=== PATIENT | male | born 1965 | race Caucasian/White ===

== ENCOUNTER → 2020-12-29 13:18 | Outpatient (BNVA) | payer MEDICARE, MEDICAID, SELFPAY | PROVIDERS: Visit Provider Psychiatry & Neurology Psychiatry | DX: F20.9 Schizophrenia, unspecified (principal); F33.2 Major depressive disorder, recurrent severe without psychotic features; F41.1 Generalized anxiety disorder | CPT/HCPCS: 99204 ==

== ENCOUNTER → 2021-01-26 10:48 | Outpatient (BNVA) | payer MEDICARE, MEDICAID, SELFPAY | PROVIDERS: Visit Provider Psychiatry & Neurology Psychiatry | DX: F41.1 Generalized anxiety disorder (principal); F33.2 Major depressive disorder, recurrent severe without psychotic features; F20.9 Schizophrenia, unspecified | CPT/HCPCS: 99214 ==

== ENCOUNTER → 2021-04-20 12:16 | Outpatient (BNVA) | payer MEDICARE, MEDICAID, SELFPAY | PROVIDERS: Visit Provider Psychiatry & Neurology Psychiatry | DX: F20.9 Schizophrenia, unspecified (principal); F33.2 Major depressive disorder, recurrent severe without psychotic features; F41.1 Generalized anxiety disorder | CPT/HCPCS: 80053; 80061; 83036; 84443; 85025; 99213 ==

== ENCOUNTER → 2021-08-21 15:19 | Outpatient (BNVA) | payer MEDICARE, MEDICAID, SELFPAY | PROVIDERS: Visit Provider Psychiatry & Neurology Psychiatry | DX: F41.1 Generalized anxiety disorder (principal); F33.2 Major depressive disorder, recurrent severe without psychotic features; F20.9 Schizophrenia, unspecified | CPT/HCPCS: 99214 ==

== ENCOUNTER 2023-08-25 05:12 | Inpatient (IN) | payer MEDICARE, MEDICAID, SELFPAY ==
[2023-08-25 05:13] VITALS: BP 130/93; PULSE 98; RESP 18; TEMP 36.6; O2SAT 97; BMI 34.4
[2023-08-25 05:47] LABS: Basophils % 0.3 %; Eosinophils % 0.1 %; Hematocrit 44.5 % (37-53); Lymphocytes # 1.5 10^3/uL (0.8-4.8); Lymphocytes % 13.7 %; Mean Corpuscular HGB Conc 33.9 g/dL (30-55); Mean Corpuscular Hemoglobin 31.9 pg (27-33); Mean Corpuscular Volume 94.1 fl (82-101); Mean Platelet Volume 9.6 fL (7.4-10.4); Monocytes # 0.7 10^3/uL (0.2-0.9); Monocytes % 6.2 %; Neutrophils % 79.5 %; Nucleated Red Blood Cells % 0 %; Platelet Count 410 10^3/cmm (157-399); Red Blood Count 4.73 10^6/uL (3.85-5.65); Red Cell Distribution Width 12.7 % (12.1-15.1); White Blood Count 11.05 10^3/uL (3.29-11.43)
--- NOTE | 2023-08-25 06:13 | W.ED.PSYCHS ---
HPI - Psych General: Chief Complaint: Psychiatric Symptoms Stated Complaint: SI Time Seen by Provider: 08/25/23 05:41 Source: patient Mode of arrival: EMS History of Present Illness: 57-year-old male presents to the emergency room with complaints of suicidal ideation via EMS. He has previously been seen by [facility] no previous admissions at our facility. He has previously been on several medications however states its been a couple of years since has been stable. Staff has not had his medications. He has a history of schizophrenia. Patient was previously seen by [facility] but has not been there in 2 years has been off of all of his medications during that time. He is contemplating harming himself either by hanging or carbon monoxide poisoning. MD complaint: suicidal ideation Onset (ago): unknown Relieving factors: none Exacerbating factors: none Associated psychiatric symptoms: depression, suicidal ideation and other (History schizophrenia) Associated symptoms: Reports depression and suicidal ideation If self harm: admits thoughts of self harm Review of Systems Const: Denies: fever(s) or chills Card: Denies: chest pain Resp: Denies: dyspnea GI: Denies: abdominal pain : Denies: dysuria, urinary frequency or urinary urgency Musc: Denies: neck pain or back pain Skin/Breast: Denies: rash Psych: Reports: depression and suicidal ideation [facility] ED PFSH: Medical History (Updated 08/25/23 @ 06:24 by Avni Reaves DO) Generalized anxiety disorder Major depressive disorder, recurrent severe without psychotic features Schizophrenia Social History Smoking and tobacco/nicotine status: former use of tobacco/nicotine Quit status (tobacco/nicotine): has quit using Year quit tobacco: 2005 Second hand smoke exposure: No Physical Exam Const: GENERAL APPEARANCE: cooperative and comfortable ORIENTATION/CONSCIOUSNESS: Yes awake, Yes oriented to person, Yes oriented to place and Yes oriented to time HENMT: COMMON NORMALS: normocephalic, atraumatic and hearing grossly normal bilaterally HEAD & SCALP: normocephalic and atraumatic Resp: COMMON NORMALS: normal respiratory effort, No retractions, No use of accessory muscles and clear to auscultation bilaterally AUSCULTATION: clear to auscultation bilaterally Cardio: COMMON NORMALS: regular rate, regular rhythm and No murmurs present (Cardio) RATE: regular rate RHYTHM: regular rhythm GI: COMMON NORMALS: Soft to palpation and No hepatosplenomegaly present AUSCULTATION: Yes normoactive bowel sounds PALPATION: Yes Soft to palpation, No Tenderness to palpation present (GI), No Guarding due to palpation present (GI) and Yes No hepatosplenomegaly present Extremity: COMMON NORMALS: normal to inspection, capillary refill normal, no clubbing, cyanosis or edema, no calf tenderness and no pedal edema Neuro: SENSORIUM/ORIENTATION: Yes oriented to person, Yes oriented to place and Yes oriented to time Skin: COMMON NORMALS: no rashes or lesions noted GENERAL SKIN EXAM: no rashes or lesions noted Course Vital Signs: Vital signs: Vital Signs Temperature 97.8 F 08/25/23 05:13 Pulse Rate 98 08/25/23 05:13 Respiratory Rate 17 08/25/23 06:53 Blood Pressure 130/93 08/25/23 05:13 Pulse Oximetry 97 08/25/23 05:13 Oxygen Delivery Me thod Room Air 08/25/23 05:13 MDM - Psych Medical Decision Making Discussed with Dr. Rosas will admit. Orders written. Differential Diagnosis Likely chronic schizophrenia, suicidal ideation and acute anxiety Medical Records I reviewed the patient's medical records. Lab Data I reviewed the patient's lab results. 08/25/23 05:31 08/25/23 05:31 Laboratory Results WBC 11.05 10^3/uL (3.29-11.43) 08/25/23 05:31 RBC 4.73 10^6/uL (3.85-5.65) 08/25/23 05:31 Hgb 15.10 g/dL (11.27-16.99) 08/25/23 05:31 Hct 44.5 % (37-53) 08/25/23 05:31 MCV 94.1 fl (82-101) 08/25/23 05:31 MCH 31.9 pg (27-33) 08/25/23 05:31 MCHC 33.9 g/dL (30-55) 08/25/23 05:31 RDW 12.7 % (12.1-15.1) 08/25/23 05:31 Plt Count 410 10^3/cmm (157-399) H 08/25/23 05:31 MPV 9.6 fL (7.4-10.4) 08/25/23 05:31 Neut % (Auto) 79.5 % 08/25/23 05:31 Lymph % (Auto) 13.7 % 08/25/23 05:31 Todd % (Auto) 6.2 % 08/25/23 05:31 Eos % (Auto) 0.1 % 08/25/23 05:31 Baso % (Auto) 0.3 % 08/25/23 05:31 Neut # (Auto) 8.80 10^3/uL (1.8-7.7) H 08/25/23 05:31 Lymph # (Auto) 1.5 10^3/uL (0.8-4.8) 08/25/23 05:31 Todd # (Auto) 0.7 10^3/uL (0.2-0.9) 08/25/23 05:31 Eos # (Auto) 0.0 10^3/uL (0.0-0.8) 08/25/23 05:31 Baso # (Auto) 0.0 10^3/uL (0.0-0.1) 08/25/23 05:31 Nucleated RBC % (auto) 0 % 08/25/23 05:31 Nucleated RBCs # 0.0 /100WBC 08/25/23 05:31 Sodium 138 mmol/L (136-145) 08/25/23 05:31 Potassium 3.9 mmol/L (3.5-5.1) 08/25/23 05:31 Chloride 99 mmol/L (98-107) 08/25/23 05:31 Carbon Dioxide 24 mmol/L (22-29) 08/25/23 05:31 Anion Gap 18.9 (5-19) 08/25/23 05:31 BUN 16 mg/dL (6-20) 08/25/23 05:31 Creatinine 1.0 mg/dL (0.7-1.2) 08/25/23 05:31 GFR Calculation 77.6 mL/min (90-130) L 08/25/23 05:31 Glucose 109 mg/dL (65-115) 08/25/23 05:31 Calculated Osmolality 288 mOsm/kg (285-295) 08/25/23 05:31 Calcium 9.6 mg/dL (8.5-10.5) 08/25/23 05:31 Total Bilirubin 0.6 mg/dL (0.15-1.2) 08/25/23 05:31 AST 17 U/L (0-40) 08/25/23 05:31 ALT 17 U/L (0-41) 08/25/23 05:31 Alkaline Phosphatase 69 U/L (40-130) 08/25/23 05:31 Total Protein 7.4 g/dL (6.6-8.7) 08/25/23 05:31 Albumin 4.8 g/dL (3.5-5.2) 08/25/23 05:31 Globulin 2.6 g/dL (1.3-4.6) 08/25/23 05:31 Salicylates < 0.3 mg/dL (3-10) L 08/25/23 05:31 Acetaminophen < 5.0 ug/mL (10-30) L 08/25/23 05:31 Ethyl Alcohol < 10 mg/dL (0-10) 08/25/23 05:31 No radiology studies performed this visit Discharge Plan Discharge Patient Disposition: Admitted As Inpatient Admit Provider: Urban Rosas Clinical Impression: Suicidal ideation, Depression, Schizophrenia Condition: Stable Coding Level of Care Code ED [employer] for Joao Doyle
[2023-08-25 06:17] LABS: Alanine Aminotransferase 17 U/L (0-41); Albumin Level 4.8 g/dL (3.5-5.2); Alkaline Phosphatase 69 U/L (40-130); Anion Gap 18.9 (5-19); Aspartate Amino Transferase 17 U/L (0-40); Blood Urea Nitrogen 16 mg/dL (6-20); Calcium 9.6 mg/dL (8.5-10.5); Carbon Dioxide 24 mmol/L (22-29); Chloride 99 mmol/L (98-107); Globulin 2.6 g/dL (1.3-4.6); Glomerular Filtration Rate 77.6 mL/min (90-130); Glucose 109 mg/dL (65-115); Osmolality Calculated 288 mOsm/kg (285-295); Potassium 3.9 mmol/L (3.5-5.1); Sodium 138 mmol/L (136-145); Total Bilirubin 0.6 mg/dL (0.15-1.2); Total Protein 7.4 g/dL (6.6-8.7)
[2023-08-25 06:20] LABS: Acetaminophen < 5.0 ug/mL (10-30); Alcohol Level < 10 mg/dL (0-10); Salicylate < 0.3 mg/dL (3-10)
[2023-08-25 06:40] VITALS: RESP 17
[2023-08-25 06:53] VITALS: RESP 17
[2023-08-25 07:30] VITALS: BP 134/91; PULSE 82; RESP 18; TEMP 36.9; O2SAT 97
[2023-08-25] MEDS: flu vacc pf 2023-24 (6 mos+) 60 MCG IM (09:26)
[2023-08-25 13:35] VITALS: BP 129/75; PULSE 92; RESP 18; TEMP 36.4; O2SAT 98
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
[2023-08-25 20:10] VITALS: BP 105/76; PULSE 71; RESP 16; TEMP 36.6; O2SAT 96
[2023-08-25 21:49] LABS: Amphetamines Screen Urine Negative (Negative); Barbiturates Screen Urine Negative (Negative); Benzodiazepines Screen Urine Negative (Negative); Cocaine Screen Urine Negative (Negative); Opiate Screen Urine Negative (Negative); PCP Screen Urine Negative (Negative); THC Screen Urine Positive (Negative)
[2023-08-25 21:50] LABS: Add Urine Microscopic? YES; Amorphous Sediment Urine 1+ /hpf; Bilirubin Urine 1+ (Negative); Blood Urine Neg (Negative); Glucose Urine UA Norm (Normal); Ketones Urine 1+ (Negative); Leukocyte Esterase Urine Negative (Negative); Mucus Urine 2+ /hpf; Nitrate Urine Negative (Negative); Protein Urine Trace (Negative); RBC Urine RARE /hpf (0-2); Urine Appearance Clear (CLEAR); Urine Color Yellow (Yellow); Urobilinogen Urine 8 mg/dL (Negative); WBC Urine RARE /hpf (0-5); pH Urine 5 (5-7)
[2023-08-25 21:51] LABS: Add Urine Culture? No
[2023-08-26 06:00] VITALS: RESP 16
[2023-08-26 14:00] VITALS: BP 116/77; PULSE 72; RESP 16; TEMP 36.9; O2SAT 97
[2023-08-26] MEDS: lurasidone 80 mg Tablet 40 MG PO (16:59)
[2023-08-26] MEDS: nicotine 2 mg Gum BUCCAL (16:59)
--- NOTE | 2023-08-26 18:30 | P.NPUPN_ITS ---
Subjective NPU Subjective: Patient is a 57-year-old male with history of schizophrenia and suicidal ideation. He continued to report depressed mood and reported having suicidal thoughts. He continued to report that he believes that the forces including law enforcement were somehow monitoring and somehow testicles bugging his testicles. Patient reports being frustrated at being placed under their intense monitoring. Patient was unable to describe why or for what reason he was the focus of their intense scrutiny. he had reported some difficulties with sleep. The patient was able to attend groups but reported feeling tired. Mental Status Exam MSE Comments: patient is a casually dressed cooperative male who appeared his stated age. He was slightly overweight. He was alert and oriented to person place time and situation. His speech was normal in regards to rate rhythm and prosody.His gait appeared adequate. His hygiene was poor. There was no evidence of any abnormal involuntary motor movements tics or tremors appreciated. His mood was described as down. His affect appeared blunted. His thought process was linear logical and goal-directed. His thought content showed evidence of active paranoia with bizarre delusions appreciated. He did not appear to be responding internal stimuli. He had endorsed suicidal ideation without any current plan. He denied any homicidal ideation. His insight appeared impaired. His judgment was poor. His impulse control appeared limited. Vitals/I&O/Wt Last Vital Signs Temp 98.4 F 08/26/23 14:00 Pulse 72 08/26/23 14:00 Resp 16 08/26/23 14:00 BP 116/77 08/26/23 14:00 Pulse Ox 97 08/26/23 14:00 O2 Del Method Room Air 08/26/23 14:00 Weight last 48 hrs Weight 108.862 kg Data NPU 08/25/23 05:31 08/25/23 05:31 A&P Assessment and plan (1) Schizophrenia: (2) Suicidal ideation: (3) Generalized anxiety disorder: Plan Patient is a 57-year-old male with schizophrenia admitted with active paranoia in the context of noncompliance with his psychiatric medications for over 2 years. The patient was agreeable to a trial of a medication to target psychosis. 1. ?Encourage individual, group and milieu therapy. 2. Recommend sober living treatment at the highest level of care to which the patient is willing to commit. 3. Continue q-15 minute checks for safety 4. Will start Latuda 40mg at 7Pm with food today. Risks and benefits discussed with patient. Involuntary Hold Information 96 Hour Hold: 96 Hour Involuntary Admission: No Attestations NPU Medical Necessity Statement*: Inpatient hospitalization is medically necessary and deemed to be the clinically appropriate intervention at this time.? Medications will be initiated and adjusted as clinically indicated.? The patient?s likely length of stay is 5-7 days.? Coding Level of Care Code Acute Code for [facility] Fwd Diagnoses Schizophrenia F20.9 Suicidal ideation R45.851 Generalized anxiety disorder F41.1
[2023-08-26 20:09] VITALS: BP 153/75; PULSE 85; RESP 18; O2SAT 96
[2023-08-26] MEDS: trazodone 50 mg Tablet PO (22:59)
[2023-08-27 06:00] VITALS: BP 132/90; PULSE 100; RESP 18; TEMP 36.8; O2SAT 93
[2023-08-27] MEDS: hyDROXYzine 25 mg Capsule 50 MG PO (08:19)
[2023-08-27 14:00] VITALS: BP 113/74; PULSE 74; RESP 16; TEMP 36.8; O2SAT 96
--- NOTE | 2023-08-27 16:33 | P.NPUPN_ITS ---
Subjective NPU Subjective: Patient is a 57-year-old male with history of schizophrenia and suicidal ideation. Patient had endorsed that he had felt like he may try to kill himself if he were to leave. He had continue to report feeling targeted here in the hospital by the [place] police and the legal system. He had reported that he had felt that his body was being bugged and stated that he needed to leave the state as soon as possible. He had reported that he had been controlled for years. Mental Status Exam MSE Comments: patient is a casually dressed cooperative male who appeared his stated age. He was slightly overweight. He was alert and oriented to person place time and situation. His speech was normal in regards to rate rhythm and prosody.His gait appeared adequate. His hygiene was poor. There was no evidence of any abnormal involuntary motor movements tics or tremors appreciated. His mood was described as down. His affect appeared blunted. His thought process was linear logical and goal-directed. His thought content showed evidence of active paranoia with bizarre delusions of control. He did not appear to be responding internal stimuli. He had endorsed suicidal ideation without any current plan. He denied any homicidal ideation. His insight appeared impaired. His judgment was poor. His impulse control appeared limited. Vitals/I&O/Wt Last Vital Signs Temp 98.3 F 08/27/23 14:00 Pulse 74 08/27/23 14:00 Resp 16 08/27/23 14:00 BP 113/74 08/27/23 14:00 Pulse Ox 96 08/27/23 14:00 O2 Del Method Room Air 08/27/23 14:00 Data NPU 08/25/23 05:31 08/25/23 05:31 A&P Assessment and plan (1) Schizophrenia: (2) Suicidal ideation: (3) Generalized anxiety disorder: Plan Patient is a 57-year-old male with schizophrenia admitted with active paranoia in the context of noncompliance with his psychiatric medications for over 2 years. The patient was agreeable to a trial of a medication to target psychosis. 1. ?Encourage individual, group and milieu therapy. 2. Recommend sober living treatment at the highest level of care to which the patient is willing to commit. 3. Continue q-15 minute checks for safety 4. Increase Latuda 60mg at 7Pm with food. Risks and benefits discussed with patient. Involuntary Hold Information 96 Hour Hold: 96 Hour Involuntary Admission: No Attestations NPU Medical Necessity Statement*: Inpatient hospitalization is medically necessary and deemed to be the clinically appropriate intervention at this time.? Medications will be initiated and adju sted as clinically indicated.? The patient?s likely length of stay is 5-7 days.? Coding Level of Care Code Acute Code for [facility] Fwd Diagnoses Schizophrenia F20.9 Suicidal ideation R45.851 Generalized anxiety disorder F41.1
[2023-08-27] MEDS: lurasidone 20 mg Tablet 60 MG PO (17:07)
[2023-08-27 20:42] VITALS: BP 111/72; PULSE 66; RESP 16; TEMP 37; O2SAT 98
[2023-08-28 06:00] VITALS: BP 136/85; PULSE 82; RESP 17; O2SAT 97
[2023-08-28] MEDS: hyDROXYzine 25 mg Capsule 50 MG PO (11:09)
[2023-08-28 14:00] VITALS: BP 130/93; PULSE 74; RESP 16; TEMP 36.6; O2SAT 98
[2023-08-28] MEDS: lurasidone 20 mg Tablet 60 MG PO (16:33)
[2023-08-28] MEDS: CLONazepam 1 mg Tablet PO (16:33)
--- NOTE | 2023-08-28 17:19 | W.PM.NPUPNS ---
Subjective NPU Subjective: Patient is a 57-year-old male with history of schizophrenia and suicidal ideation. The patient had still reported having thoughts of wanting to . He had stated that he had felt extremely uncomfortable stating that he could not handle the pain that he was feeling in his scrotum as he attributed his pain to a device that the police were placing on his testicles. He continued to isolate himself on the milieu. He continued to make bold and bizarre statements regarding the police having excessively targeted the patient for no clear reason. Mental Status Exam MSE Comments: The patient is a casually dressed cooperative male who appeared his stated age. He was slightly overweight. He was alert and oriented to person place time and situation. His speech was normal in regards to rate rhythm and prosody. His gait appeared adequate. His hygiene was poor. There was no evidence of any abnormal involuntary motor movements tics or tremors appreciated. His mood was described as terrible. His affect appeared blunted. His thought process was focused on somatic complaints including testicular pain. His thought content showed evidence of active paranoia with bizarre delusions of control. He did not appear to be responding internal stimuli. He had endorsed suicidal ideation without any current plan. He denied any homicidal ideation. His insight appeared impaired. His judgment was poor. His impulse control appeared limited. Vitals/I&O/Wt Last Vital Signs Temp 98 F 08/28/23 14:00 Pulse 74 08/28/23 14:00 Resp 16 08/28/23 14:00 BP 130/93 08/28/23 14:00 Pulse Ox 98 08/28/23 14:00 O2 Del Method Room Air 08/28/23 14:00 Data NPU 08/25/23 05:31 08/25/23 05:31 A&P Assessment and plan (1) Schizophrenia: (2) Suicidal ideation: (3) Generalized anxiety disorder: Plan Patient is a 57-year-old male with schizophrenia admitted with active paranoia in the context of noncompliance with his psychiatric medications for over 2 years. The patient was agreeable to a trial of a medication to target psychosis. 1. ?Encourage individual, group and milieu therapy. 2. Recommend sober living treatment at the highest level of care to which the patient is willing to commit. 3. Continue q-15 minute checks for safety 4. Continue Latuda 60mg at 7Pm with food. Risks and benefits discussed with patient. 5. Check CBC with Diff, Involuntary Hold Information 96 Hour Hold: 96 Hour Involuntary Admission: No Attestations NPU Medical Necessity Statement*: Inpatient hospitalization is medically necessary and deemed to be the clinically appropriate intervention at this time.? Medications will be initiated and adjusted as clinically indicated.? The patient?s likely length of stay is 5-7 days.? Coding Level of Care Code Acute Code for [facility] Fwd Diagnoses Schizophrenia F20.9 Suicidal ideation R45.851 Generalized anxiety disorder F41.1
[2023-08-28 18:59] LABS: Hematocrit 42.2 % (37-53); Mean Corpuscular HGB Conc 33.4 g/dL (30-55); Mean Corpuscular Hemoglobin 31.8 pg (27-33); Mean Corpuscular Volume 95.3 fl (82-101); Mean Platelet Volume 10.1 fL (7.4-10.4); Platelet Count 365 10^3/cmm (157-399); Red Blood Count 4.43 10^6/uL (3.85-5.65); Red Cell Distribution Width 12.9 % (12.1-15.1); White Blood Count 8.83 10^3/uL (3.29-11.43)
[2023-08-28 19:19] LABS: Absolute Eosinophils 0.3 10^3/cmm (0.0-0.7); Absolute Neutrophil 5.8 10^3/cmm (1.4-6.5); Absolute Segmented Neutrophil 5.8 10/cmm (1.6-7.1); Eosinophils 3 %; Lymphocytes 23 %; Lymphocytes Absolute 2.3 10^3/cmm (1.2-3.4); Monocytes Absolute 0.4 10^3/cmm (0.1-0.6); Platelet Estimate Normal (Normal); Segmented Neutrophils 66 %; Total Cells Counted 100 (0-100)
[2023-08-28 20:34] VITALS: BP 134/89; PULSE 76; RESP 16; TEMP 36.3; O2SAT 96
[2023-08-29] MEDS: hyDROXYzine 25 mg Capsule 50 MG PO ×3 (05:13→17:08)
[2023-08-29 06:00] VITALS: BP 133/85; PULSE 77; RESP 17; TEMP 36.5; O2SAT 96
--- NOTE | 2023-08-29 13:12 | P.NPUPN_ITS ---
Subjective NPU Subjective: Patient is a 57-year-old male with history of schizophrenia and suicidal ideation. Patient continued to endorse suicidal thoughts if he were to go home. He had reported concern that the police were trying to harm him at his home and stated that he wished to consider an alternative living option including moving from the state. Patient had reported some relief in anxiety and reported that he was not having as much testicular pain today. Patient continued to endorse that his private parts were being assaulted by a drone that had the ability to gain control and cause pain to his testicles. Mental Status Exam MSE Comments: The patient is a casually dressed cooperative male who appeared his stated age. He was slightly overweight. He was alert and oriented to person place time and situation. His speech was normal in regards to rate rhythm and prosody. His gait appeared adequate. His hygiene was improving. There was no evidence of any abnormal involuntary motor movements tics or tremors appreciated. His mood was described as better. His affect remained blunted. His thought process was focused on somatic complaints including testicular pain. His thought content showed evidence of active paranoia with bizarre delusions of control. He did not appear to be responding internal stimuli. He had endorsed suicidal ideation without any current plan. He denied any homicidal ideation. His insight appeared impaired. His judgment was poor. His impulse control appeared limited. Vitals/I&O/Wt Last Vital Signs Temp 97.7 F 08/29/23 06:00 Pulse 77 08/29/23 06:00 Resp 17 08/29/23 06:00 BP 133/85 08/29/23 06:00 Pulse Ox 96 08/29/23 06:00 O2 Del Method Room Air 08/29/23 06:00 Data NPU 08/28/23 18:15 08/25/23 05:31 A&P Assessment and plan (1) Schizophrenia: (2) Suicidal ideation: (3) Generalized anxiety disorder: Plan Patient is a 57-year-old male with schizophrenia admitted with active paranoia in the context of noncompliance with his psychiatric medications for over 2 years. The patient was agreeable to a trial of a medication to target psychosis. 1. ?Encourage individual, group and milieu therapy. 2. Recommend sober living treatment at the highest level of care to which the patient is willing to commit. 3. Continue q-15 minute checks for safety 4. Continue Latuda 60mg at 7Pm with food. Risks and benefits discussed with patient. 5. Check CBC with Diff, FSG, fasting lipid profile, LFT ordered. Involuntary Hold Information 96 Hour Hold: 96 Hour Involuntary Admission: No Attestations NPU Medical Necessity Statement*: Inpatient hospitalization is medically necessary and deemed to be the clinically appropriate intervention at this time.? Medications will be initiated and adjusted as clinically indicated.? The patient?s likely length of stay is 5-7 d ays.? Coding Level of Care Code Acute Code for Chg Fwd Diagnoses Schizophrenia F20.9 Suicidal ideation R45.851 Generalized anxiety disorder F41.1
[2023-08-29 14:00] VITALS: BP 121/83; PULSE 87; RESP 15; TEMP 36.8; O2SAT 96
[2023-08-29] MEDS: lurasidone 20 mg Tablet 60 MG PO (17:09)
[2023-08-29 20:28] VITALS: RESP 16
[2023-08-30 06:00] VITALS: BP 121/82; PULSE 84; RESP 18; TEMP 36.7; O2SAT 99
[2023-08-30] MEDS: hyDROXYzine 25 mg Capsule 50 MG PO ×3 (06:42→19:31)
--- NOTE | 2023-08-30 12:57 | PC.NURSE ---
administered 50mg Vistaril to patient for moderate anxiety. patient in dayroom watching tv
[2023-08-30 14:00] VITALS: BP 135/87; PULSE 95; RESP 15; TEMP 36.6; O2SAT 94
--- NOTE | 2023-08-30 16:37 | W.PM.NPUPNS ---
Subjective NPU Subjective: Patient is a 57-year-old male with history of schizophrenia and suicidal ideation. Patient had less somatic complaints. He had continued to report suspicions of the police and government officials somehow causing him pain. He had reported that if he were to return to his current living facility that he would likely need to flee as he stated that he had been tired of fighting the law forces in their influence on his body through some biological drones. He had been somewhat isolative on the milieu. He reported no side effects from his medication other than feeling that it made him sleepy shortly after taking it. He had requested that he take the medicine a bit later at night. Mental Status Exam MSE Comments: The patient is a casually dressed cooperative overweight male who appeared his stated age. He was alert and oriented to person, place, time, and situation. His speech was normal in volume, prosody with brief periods of increased latency. His gait appeared adequate. His hygiene was improving. There was no evidence of any abnormal involuntary motor movements tics or tremors appreciated. His mood was described as better. His affect remained blunted. His thought process was less focused on testicular pain. His thought content continued to show active bizarre delusions. He did not appear to be responding internal stimuli. He had endorsed fleeting continguent suicidal thoughts. He denied any homicidal ideation. His insight appeared impaired. His judgment was poor. His impulse control appeared limited. Vitals/I&O/Wt Last Vital Signs Temp 97.9 F 08/30/23 14:00 Pulse 95 08/30/23 14:00 Resp 15 08/30/23 14:00 BP 135/87 08/30/23 14:00 Pulse Ox 94 08/30/23 14:00 O2 Del Method Room Air 08/29/23 14:00 Data NPU 08/28/23 18:15 08/25/23 05:31 A&P Assessment and plan (1) Schizophrenia: (2) Suicidal ideation: (3) Generalized anxiety disorder: Plan Patient is a 57-year-old male with schizophrenia admitted with active paranoia in the context of noncompliance with his psychiatric medications for over 2 years. The patient was agreeable to a trial of a medication to target psychosis. 1. ?Encourage individual, group and milieu therapy. 2. Recommend sober living treatment at the highest level of care to which the patient is willing to commit. 3. Continue q-15 minute checks for safet. Continue Latuda 60mg at 7Pm with food. Risks and benefits discussed with patient. 5. Check CBC with Diff, FSG, fasting lipid profile, LFT ordered. Involuntary Hold Information 96 Hour Hold: 96 Hour Involuntary Admission: No Attestations NPU Medical Necessity Statement*: Inpatient hospitalization is medically necessary and deemed to be the clinically appropriate intervention at this time.? Medications will be initiated and adjusted as clinically indicated.? The patient?s likely length of stay is 5-7 days.? Coding Level of Care Code Acute Code for Chg Fwd Diagnoses Schizophrenia F20.9 Suicidal ideation R45.851 Generalized anxiety disorder F41.1
[2023-08-30] MEDS: lurasidone 20 mg Tablet 60 MG PO (19:31)
[2023-08-30 20:02] VITALS: BP 122/81; PULSE 88; RESP 18; TEMP 36.4; O2SAT 97
[2023-08-30] MEDS: trazodone 50 mg Tablet PO (20:12)
[2023-08-31 06:00] VITALS: BP 130/73; PULSE 90; RESP 16; O2SAT 94
[2023-08-31] MEDS: hyDROXYzine 25 mg Capsule 50 MG PO ×2 (08:52→16:18)
--- NOTE | 2023-08-31 12:29 | W.PM.NPUPNS ---
Subjective NPU Subjective: Patient is a 57-year-old male with history of schizophrenia and suicidal ideation. The patient reported that he continued to feel unsafe and stated that he was uncertain about his future. He stated that he felt that his better managed but stated that he continued to be worried about the police using drones to cause damage to my body. Patient had been isolative on the milieu. He reported no side effects from his medication. Mental Status Exam MSE Comments: The patient is a casually dressed cooperative overweight male who appeared his stated age. He was alert and oriented to person, place, time, and situation. His speech was normal in volume, prosody with less frequent periods of latency. His gait appeared adequate. His hygiene was improving. There was no evidence of any abnormal involuntary motor movements tics or tremors appreciated. His mood was described as okay. His affect remained blunted. His thought process was linear and less somatic in nature. His thought content continued to show continued presence of somatic delusions and ideas of reference. He did not appear to be responding internal stimuli. He had endorsed fleeting continguent suicidal thoughts. He denied any homicidal ideation. His insight appeared impaired. His judgment was poor. His impulse control appeared limited. Vitals/I&O/Wt Last Vital Signs Temp 97.6 F 08/30/23 20:02 Pulse 90 08/31/23 06:00 Resp 16 08/31/23 06:00 BP 130/73 08/31/23 06:00 Pulse Ox 94 08/31/23 06:00 O2 Del Method Room Air 08/31/23 06:00 Data NPU 08/28/23 18:15 08/25/23 05:31 A&P Assessment and plan (1) Schizophrenia: (2) Suicidal ideation: (3) Generalized anxiety disorder: Plan Patient is a 57-year-old male with schizophrenia admitted with active paranoia in the context of noncompliance with his psychiatric medications for over 2 years. The patient was agreeable to a trial of a medication to target psychosis. 1. ?Encourage individual, group and milieu therapy. 2. Recommend sober living treatment at the highest level of care to which the patient is willing to commit. 3. Continue q-15 minute checks for safety. Continue Latuda 60mg at 7Pm with food. Risks and benefits discussed with patient. Patient appears better. Involuntary Hold Information 96 Hour Hold: 96 Hour Involuntary Admission: No Attestations NPU Medical Necessity Statement*: Inpatient hospitalization is medically necessary and deemed to be the clinically appropriate intervention at this time.? Medications will be initiated and adjusted as clinically indicated.? The patient?s likely length of stay is 5-7 days.? Coding Level of Care Code Acute Code for Chg Fwd Diagnoses Schizophrenia F20.9 Suicidal ideation R45.851 Generalized anxiety disorder F41.1
[2023-08-31 14:00] VITALS: BP 110/71; PULSE 86; RESP 16; TEMP 36.6; O2SAT 97
[2023-08-31] MEDS: lurasidone 20 mg Tablet 60 MG PO (18:49)
[2023-08-31 22:00] VITALS: BP 103/70; PULSE 89; RESP 18; TEMP 36.3; O2SAT 96
[2023-09-01] MEDS: hyDROXYzine 25 mg Capsule 50 MG PO ×2 (05:44→20:30)
[2023-09-01 06:00] VITALS: BP 115/73; PULSE 71; RESP 18; TEMP 36.4; O2SAT 96
[2023-09-01 14:00] VITALS: BP 118/78; PULSE 69; RESP 15; TEMP 36.7; O2SAT 98
[2023-09-01] MEDS: lurasidone 20 mg Tablet 60 MG PO (18:26)
--- NOTE | 2023-09-01 18:44 | P.NPUPN_ITS ---
Subjective NPU Subjective: Patient is a 57-year-old male with history of schizophrenia and suicidal ideation. Patient reported that he had nothing to say to me today. He had stated that he continued to be excessively worried about the police and reported that he would like to have time to rest at this time. He had continued to appear preoccupied by his thoughts. He had made less somatic complaints to staff. Nevertheless, the patient had spent much of the day isolating himself in his room. Mental Status Exam MSE Comments: The patient is a casually dressed cooperative overweight male who appeared his stated age. He was alert and oriented to person, place, time, and situation. His speech was normal in volume with decreased productivity noted today. His gait appeared adequate. His hygiene was improving. There was no evidence of any abnormal involuntary motor movements tics or tremors appreciated. His mood was described as okay. His affect remained blunted. His thought process was linear and less somatic in nature. His thought content continued to show continued presence of somatic delusions and ideas of reference. He appeared more paranoid today. He did not appear to be responding internal stimuli. He had endorsed fleeting continguent suicidal thoughts. He denied any homicidal ideation. His insight appeared impaired. His judgment was poor. His impulse control appeared limited. Vitals/I&O/Wt Last Vital Signs Temp 98.1 F 09/01/23 14:00 Pulse 69 09/01/23 14:00 Resp 15 09/01/23 14:00 BP 118/78 09/01/23 14:00 Pulse Ox 98 09/01/23 14:00 O2 Del Method Room Air 09/01/23 06:00 Weight last 48 hrs Weight 113.852 kg Data NPU 08/28/23 18:15 08/25/23 05:31 A&P Assessment and plan (1) Schizophrenia: (2) Suicidal ideation: (3) Generalized anxiety disorder: Plan Patient is a 57-year-old male with schizophrenia admitted with active paranoia in the context of noncompliance with his psychiatric medications for over 2 y ears. The patient was agreeable to a trial of a medication to target psychosis. 1. ?Encourage individual, group and milieu therapy. 2. Recommend sober living treatment at the highest level of care to which the patient is willing to commit. 3. Continue q-15 minute checks for safety. Continue Latuda 60mg at 7Pm with food. Risks and benefits discussed with patient. Involuntary Hold Information 96 Hour Hold: 96 Hour Involuntary Admission: No Attestations NPU Medical Necessity Statement*: Inpatient hospitalization is medically necessary and deemed to be the clinically appropriate intervention at this time.? Medications will be initiated and adjusted as clinically indicated.? The patient?s likely length of stay is 5-7 days.? Coding Level of Care Code Acute Code for Chg Fwd Diagnoses Schizophrenia F20.9 Suicidal ideation R45.851 Generalized anxiety disorder F41.1
--- NOTE | 2023-09-01 20:06 | PC.NURSE ---
Asked pt to obtain vital signs. Pt verbally stated that pt didn't want them taken.
[2023-09-01] MEDS: trazodone 50 mg Tablet PO (20:35)
[2023-09-01 22:00] VITALS: BP 125/59; PULSE 74; RESP 18; O2SAT 98
[2023-09-02] MEDS: hyDROXYzine 25 mg Capsule 50 MG PO ×3 (04:04→18:48)
--- NOTE | 2023-09-02 15:05 | P.NPUPN_ITS ---
Subjective NPU Subjective: Patient is a 57-year-old male with history of schizophrenia and suicidal ideation. Patient had continue to endorse depressed mood. He had continued to report having thoughts of suicide. He had continued to complain of somatic complaints and stated that the Latuda was helping a little bit . He had required significant prompting for completion of activities of daily living. He reported sleep continuity disruption. Patient reported some feelings of hopelessness. He reported that he needed to get out of his current living situation as the police were still out to get me . Mental Status Exam MSE Comments: The patient is a casually dressed cooperative overweight male who appeared his stated age. He was alert and oriented to person, place, time, and situation. His speech was normal in volume with decreased productivity noted today. His gait appeared adequate. His hygiene was poor today. There was no evidence of any abnormal involuntary motor movements tics or tremors appreciated. His mood was described as not good. His affect remained blunted. His thought process was linear but superficial today. His thought content continued to show continued presence of somatic delusions and ideas of reference. THere was continued evidence of paranoia. He did not appear to be responding internal stimuli. He had endorsed suicidal thoughts today. He denied any homicidal ideation. His insight appeared impaired. His judgment was poor. His impulse control appeared limited. Vitals/I&O/Wt Last Vital Signs Temp 98.1 F 09/01/23 14:00 Pulse 74 09/01/23 22:00 Resp 18 09/01/23 22:00 BP 125/59 09/01/23 22:00 Pulse Ox 98 09/01/23 22:00 O2 Del Method Room Air 09/01/23 06:00 Weight last 48 hrs Weight 113.852 kg Data NPU 08/28/23 18:15 08/25/23 05:31 A&P Assessment and plan (1) Schizophrenia: (2) Suicidal ideation: (3) Generalized anxiety disorder: Plan Patient is a 57-year-old male with schizophrenia admitted with active paranoia in the context of noncompliance with his psychiatric medications for over 2 years. The patient was agreeable to a trial of a medication to target psychosis. 1. ?Encourage individual, group and milieu therapy. 2. Recommend sober living treatment at the highest level of care to which the patient is willing to commit. 3. Continue q-15 minute checks for safety. Continue Latuda 60mg at 7Pm with food. Risks and benefits discussed with patient. Consider SSRI or wellbutrin for depression. Involuntary Hold Information 96 Hour Hold: 96 Hour Involuntary Admission: No Attestations NPU Medical Necessity Statement*: Inpatient hospitalization is medically necessary and deemed to be the clinically appropriate intervention at this time.? Medications will be initiated and adjusted as clinically indicated.? The patient?s likely length of stay is 5-7 days.? Coding Level of Care Code Acute Code for [facility] Fwd Diagnoses Schizophrenia F20.9 Suicidal ideation R45.851 Generalized anxiety disorder F41.1
--- NOTE | 2023-09-02 17:32 | PC.NURSE ---
pt up at nurses station wanting to know when he will be able to go home, states he is really homesick and thinks he will fill better if he is at home. pt also states he will talk with Doctor about starting on a antidepressant and talk with him about going home tomorrow. pt states ok to stay tonight.
[2023-09-02] MEDS: magnesium hydroxide 30 mL UDC PO (18:48)
[2023-09-02] MEDS: trazodone 50 mg Tablet PO (20:33)
[2023-09-02] MEDS: lurasidone 20 mg Tablet 60 MG PO (20:33)
[2023-09-02 20:34] VITALS: BP 116/88; PULSE 93; RESP 18; TEMP 36.8; O2SAT 94
[2023-09-03] MEDS: hyDROXYzine 25 mg Capsule 50 MG PO ×3 (03:24→20:07)
[2023-09-03] MEDS: ibuprofen 600 mg Tablet PO ×2 (10:00→18:38)
--- NOTE | 2023-09-03 10:54 | PC.NURSE ---
PRN VISTARIL 50 MG GIVEN PO PER PT C/O STATED ANXIETY
[2023-09-03] MEDS: acetaminophen 325 mg Tablet 650 MG PO ×3 (11:21→23:05)
[2023-09-03 14:00] VITALS: BP 110/67; PULSE 76; RESP 16; TEMP 36.6; O2SAT 97
[2023-09-03] MEDS: nicotine 2 mg Gum BUCCAL (16:43)
[2023-09-03] MEDS: lurasidone 20 mg Tablet 60 MG PO (18:27)
--- NOTE | 2023-09-03 19:50 | P.NPUPN_ITS ---
Subjective NPU 2 Subjective: Patient is a 57-year-old male with history of schizophrenia and suicidal ideation. He had complained of bizarre testicular pain and was evaluated by a male nurse yesterday and found to have no signs of any testicular issues. He continued to report that he was in substantial pain and continued to report his anxiety regarding the police somehow probing into his testicles using some special electronic device remained prominent in regards to his belief system. He was compliant with his Latuda. He continued to report that he had wanted to kill himself by leaving here as soon as possible but stated that now he wanted to be more truthful Mental Status Exam 2 MSE Comments: The patient is a casually dressed cooperative overweight male who appeared his stated age. He was alert and oriented to person, place, time, and situation. His speech was normal in volume and rate today. His gait appeared adequate. His hygiene was improved today. There was no evidence of any abnormal involuntary motor movements tics or tremors appreciated. His mood was described as anxious. His affect remained blunted. His thought process was linear but superficial today. His thought content continued to show continued presence of somatic delusions and ideas of reference. There was continued evidence of paranoia. He did not appear to be responding internal stimuli. He had endorsed suicidal thoughts today. He denied any homicidal ideation. His insight appeared impaired. His judgment was poor. His impulse control appeared limited. Vitals/I&O/Wt Last Vital Signs Temp 97.8 F 09/03/23 14:00 Pulse 76 09/03/23 14:00 Resp 16 09/03/23 14:00 BP 110/67 09/03/23 14:00 Pulse Ox 97 09/03/23 14:00 O2 Del Method Room Air 09/03/23 14:00 Data NPU 08/28/23 18:15 08/25/23 05:31 A&P Assessment and plan (1) Schizophrenia: (2) Suicidal ideation: (3) Generalized anxiety disorder: Plan Patient is a 57-year-old male with schizophrenia admitted with active paranoia in the context of noncompliance with his psychiatric medications for over 2 years. The patient was agreeable to a trial of a medication to target psychosis. 1. ?Encourage individual, group and milieu therapy. 2. Recommend sober living treatment at the highest level of care to which the patient is willing to commit. 3. Continue q-15 minute checks for safety. Continue Latuda 60mg at 7Pm with food. Risks and benefits discussed with patient. Added klonopin .5mg at night to target anxiety. Involuntary Hold Information 2 96 Hour Hold: 96 Hour Involuntary Admission: No Attestations NPU 2 Medical Necessity Statement*: Inpatient hospitalization is medically necessary and deemed to be the clinically appropriate intervention at this time.? Medications will be initiated and adjusted as clinically indicated.? The patient?s likely length of stay is 5-7 days.? Coding Level of Care Code Acute Code for Chg Fwd Diagnoses Schizophrenia F20.9 Suicidal ideation R45.851 Generalized anxiety disorder F41.1
[2023-09-03] MEDS: CLONazepam 0.5 mg Tablet PO (20:07)
[2023-09-03] MEDS: trazodone 50 mg Tablet PO (20:07)
[2023-09-03 20:30] VITALS: BP 128/80; PULSE 82; RESP 18; O2SAT 97
[2023-09-04 06:00] VITALS: RESP 18
[2023-09-04] MEDS: ibuprofen 600 mg Tablet PO ×3 (07:37→20:25)
--- NOTE | 2023-09-04 07:38 | PC.NURSE ---
Administered 600mg motrin po for pain 10/10 in the abdomen.
[2023-09-04] MEDS: hyDROXYzine 25 mg Capsule 50 MG PO ×2 (08:55→15:14)
[2023-09-04] MEDS: acetaminophen 325 mg Tablet 650 MG PO ×2 (11:36→16:11)
[2023-09-04 14:00] VITALS: BP 103/65; PULSE 68; RESP 16; TEMP 36.4; O2SAT 92
--- NOTE | 2023-09-04 15:14 | PC.NURSE ---
PRN VISTARIL 50 MG GIVEN PO PER PT C/O STATED ANXIETY. WILL CONT TO MONITOR
--- NOTE | 2023-09-04 15:48 | W.PM.NPUPNS ---
Subjective NPU Subjective: Patient is a 57-year-old male with history of schizophrenia and suicidal ideation. Patient continued to report odd complaints stating that he continued to feel as if the police had somehow implanted a probe that was causing him his current problems with abdominal pain as he stated that the pain had recently moved up from his testicles into his abdominal wall. He had reported extreme anxiety and stated numerous times that he needed help with his pain. There continue to appear to be no clear evidence of any abdominal discomfort. He reported that he continued to feel that he would kill himself if he had to endure going home in this situation. He had reported having significant anxiety and difficulties with managing his chronic discomfort. Staff continued to report that the patient had made numerous attempts to obtain various medications to manage pain with no relief reported per staff and patient. Mental Status Exam MSE Comments: The patient is a casually dressed cooperative overweight male who appeared his stated age. He was alert and oriented to person, place, time, and situation. His speech was normal in volume and rate today. His gait appeared adequate. His hygiene was improved today. There was no evidence of any abnormal involuntary motor movements tics or tremors appreciated. His mood was described as afraid. His affect appeared odd and subdued. His thought process was linear but superficial today. His thought content continued to show continued presence of somatic delusions and ideas of reference. There was continued evidence of paranoia. He did not appear to be responding internal stimuli. He had continued to endorse vague suicidal thoughts. He denied any homicidal ideation. His insight appeared impaired. His judgment was poor. His impulse control appeared limited. Vitals/I&O/Wt Last Vital Signs Temp 97.5 F L 09/04/23 14:00 Pulse 68 09/04/23 14:00 Resp 16 09/04/23 14:00 BP 103/65 09/04/23 14:00 Pulse Ox 92 09/04/23 14:00 O2 Del Method Room Air 09/03/23 14:00 Data NPU 08/28/23 18:15 08/25/23 05:31 A&P Assessment and plan (1) Schizophrenia: (2) Suicidal ideation: (3) Generalized anxiety disorder: Plan Patient is a 57-year-old male with schizophrenia admitted with active paranoia in the context of noncompliance with his psychiatric medications for over 2 years. The patient was agreeable to a trial of a medication to target psychosis. 1. ?Encourage individual, group and milieu therapy. 2. Recommend sober living treatment at the highest level of care to which the patient is willing to commit. 3. Continue q-15 minute checks for safety. Continue Latuda 60mg at 7Pm with food. Risks and benefits discussed with patient. Increase klonopin to .5mg bid to target anxiety. Involuntary Hold Information 96 Hour Hold: 96 Hour Involuntary Admission: No Attestations NPU Medical Necessity Statement*: Inpatient hospitalization is medically necessary and deemed to be the clinically appropriate intervention at this time.? Medications will be initiated and adjusted as clinically indicated.? The patient?s likely length of stay is 3-5 days.? Coding Level of Care Code Acute Code for [facility] Fwd Diagnoses Schizophrenia F20.9 Suicidal ideation R45.851 Generalized anxiety disorder F41.1
[2023-09-04] MEDS: CLONazepam 0.5 mg Tablet PO ×2 (16:12→20:26)
[2023-09-04] MEDS: lurasidone 20 mg Tablet 60 MG PO (18:21)
[2023-09-04 20:04] VITALS: BP 118/73; PULSE 74; RESP 16; TEMP 36.6; O2SAT 93
[2023-09-04] MEDS: trazodone 50 mg Tablet PO (20:26)
[2023-09-05] MEDS: ibuprofen 600 mg Tablet PO ×4 (03:01→20:05)
[2023-09-05] MEDS: hyDROXYzine 25 mg Capsule 50 MG PO ×3 (03:02→17:55)
--- NOTE | 2023-09-05 06:50 | PC.NURSE ---
pt ref vs resp 18
[2023-09-05] MEDS: acetaminophen 325 mg Tablet 650 MG PO ×2 (07:30→15:49)
[2023-09-05] MEDS: ondansetron 4 MG Tablet PO (07:31)
[2023-09-05] MEDS: CLONazepam 0.5 mg Tablet PO ×2 (07:31→19:59)
[2023-09-05 12:55] LABS: Add Urine Microscopic? NO; Charge for UA Resulting for Rev
[2023-09-05 13:10] LABS: Urine Appearance Clear (CLEAR); Urine Color Yellow (Yellow)
[2023-09-05 13:11] LABS: Bilirubin Urine Neg (Negative); Blood Urine Neg (Negative); Glucose Urine UA Norm (Normal); Ketones Urine Negative (Negative); Leukocyte Esterase Urine Negative (Negative); Nitrate Urine Negative (Negative); Protein Urine Neg (Negative); Urobilinogen Urine Neg (Negative); pH Urine 6 (5-7)
[2023-09-05 14:00] VITALS: BP 116/70; PULSE 72; RESP 17; TEMP 36.5; O2SAT 94
[2023-09-05] MEDS: OLANZapine 5 mg ODT PO (14:28)
[2023-09-05] MEDS: lurasidone 20 mg Tablet 60 MG PO (18:14)
--- NOTE | 2023-09-05 18:42 | P.NPUPN_ITS ---
Subjective NPU 2 Subjective: Patient presented today reporting that he is doing better now that he is back on his medication. He reports that he is not having any side effects from the medications and that the initiation of the Klonopin was very helpful. Otherwise he reports that he had been off his medication for some time and that this was something he needed to do for a while. He reports he is working with the social work team for appropriate discharge planning. Mental Status Exam 2 MSE Comments: This is an obese white male in hospital scrubs with limited grooming and eye contact. No abnormal movements except for psychomotor retardation. Cooperative with exam in mild distress. Speech was limited and decreased rate and volume. Mood described as a little down, affect congruent. Thought process linear. Thought content: Patient denied current suicidal or homicidal ideation, there were no delusions reported or noted, he denied any auditory or visual hallucinations currently. Attention and concentration were limited and memory appeared mostly reliable but none were formally tested. He is alert and oriented x 3. Insight, judgment and impulse control are limited but improving. Vitals/I&O/Wt Last Vital Signs Temp 97.4 F L 09/05/23 20:27 Pulse 70 09/05/23 20:27 Resp 16 09/05/23 20:27 BP 116/73 09/05/23 20:27 Pulse Ox 95 09/05/23 20:27 O2 Del Method Room Air 09/05/23 20:27 Data NPU 08/28/23 18:15 08/25/23 05:31 A&P Assessment and plan (1) Schizophrenia: (2) Suicidal ideation: (3) Generalized anxiety disorder: Plan Patient is a 57-year-old male with schizophrenia admitted with active paranoia in the context of noncompliance with his psychiatric medications for over 2 years. The patient was agreeable to a trial of a medication to target psychosis. 1. ?Encourage individual, group and milieu therapy. 2. Recommend sober living treatment at the highest level of care to which the patient is willing to commit. 3. Continue q-15 minute checks for safety. Continue Latuda 60mg at 7Pm with food. Risks and benefits discussed with patient. Increased klonopin to .5mg bid to target anxiety. Involuntary Hold Information 2 96 Hour Hold: 96 Hour Involuntary Admission: No Attestations NPU 2 Medical Necessity Statement*: Inpatient hospitalization is medically necessary and deemed to be the clinically appropriate intervention at this time.? Medications will be initiated and adjusted as clinically indicated.? The patient?s likely length of stay is 3-5 days.? Coding Level of Care Code Acute Code for g Fwd Diagnoses Schizophrenia F20.9 Suicidal ideation R45.851 Generalized anxiety disorder F41.1
[2023-09-05] MEDS: trazodone 50 mg Tablet PO (20:07)
[2023-09-05 20:27] VITALS: BP 116/73; PULSE 70; RESP 16; TEMP 36.3; O2SAT 95
[2023-09-06 06:00] VITALS: BP 119/77; PULSE 68; RESP 16; O2SAT 95
--- NOTE | 2023-09-06 09:10 | P.NPUPN_ITS ---
Subjective NPU 2 Subjective: Patient presented today reporting that he is doing okay. He was a little less isolative per staff and direct observation having slightly more time outside of his room. He reported the medication is slowly seeming to help and denied any side effects at this time. There were reports of statements about lethality to staff which led to his roommate feeling somewhat uncomfortable about being in the room as he was voicing this out loud. He had difficulty articulating what that was exactly about. Mental Status Exam 2 MSE Comments: This is an obese white male in hospital scrubs with limited grooming and eye contact. No abnormal movements except for psychomotor retardation. Wearing a towel on his head. Cooperative with exam in mild distress. Speech was limited and decreased rate and volume. Mood described as a little down, affect congruent. Thought process linear. Thought content: Patient denied current suicidal or homicidal ideation, there were no delusions reported or noted, he denied any auditory or visual hallucinations currently. Attention and concentration were limited and memory appeared mostly reliable but none were formally tested. He is alert and oriented x 3. Insight, judgment and impulse control are limited but improving. Vitals/I&O/Wt Last Vital Signs Temp 97.4 F L 09/05/23 20:27 Pulse 68 09/06/23 06:00 Resp 16 09/06/23 06:00 BP 119/77 09/06/23 06:00 Pulse Ox 95 09/06/23 06:00 O2 Del Method Room Air 09/06/23 06:00 Data NPU 08/28/23 18:15 08/25/23 05:31 A&P Assessment and plan (1) Schizophrenia: (2) Suicidal ideation: (3) Generalized anxiety disorder: Plan Patient is a 57-year-old male with schizophrenia admitted with active paranoia in the context of noncompliance with his psychiatric medications for over 2 years. The patient was agreeable to a trial of a medication to target psychosis. 1. ?Encourage individual, group and milieu therapy. 2. Recommend sober living treatment at the highest level of care to which the patient is willing to commit. 3. Continue q-15 minute checks for safety. Continue Latuda 60mg at 7Pm with food. Risks and benefits discussed with patient. Increased klonopin to .5mg bid to target anxiety. Involuntary Hold Information 2 96 Hour Hold: 96 Hour Involuntary Admission: No Attestations NPU 2 Medical Necessity Statement*: Inpatient hospitalization is medically necessary and deemed to be the clinically appropriate intervention at this time.? Medications will be initiated and adjusted as clinically indicated.? The patient?s likely length of stay is 3-5 days.? Coding Level of Care Code Acute Code for Chg Fwd Diagnoses Schizophrenia F20.9 Suicidal ideation R45.851 Generalized anxiety disorder F41.1
[2023-09-06] MEDS: CLONazepam 0.5 mg Tablet PO ×2 (09:12→19:59)
[2023-09-06] MEDS: ibuprofen 600 mg Tablet PO ×2 (09:13→17:10)
[2023-09-06] MEDS: acetaminophen 325 mg Tablet 650 MG PO ×2 (13:57→20:21)
[2023-09-06] MEDS: hyDROXYzine 25 mg Capsule 50 MG PO ×2 (13:57→20:21)
[2023-09-06 14:00] VITALS: BP 123/83; PULSE 71; RESP 20; TEMP 36.4; O2SAT 97
--- NOTE | 2023-09-06 15:02 | DCPLANNER ---
Imm was printed and given to pt and copy placed in file.
[2023-09-06] MEDS: OLANZapine 5 mg ODT PO (17:10)
--- NOTE | 2023-09-06 17:11 | PC.NURSE ---
anxiety 10/10 patient reports feeling scared about the thing in his abdomen/testicles.
--- NOTE | 2023-09-06 18:27 | PC.NURSE ---
Patient's roommate stated that patient has been saying things like, he is going to shoot himself when he gets discharged. When confronted patient stated that he has already gone over this with the doctor and doesn't want to talk about it anymore. Will continue to monitor.
[2023-09-06] MEDS: lurasidone 20 mg Tablet 60 MG PO (18:31)
[2023-09-06] MEDS: trazodone 50 mg Tablet PO (20:21)
[2023-09-06 20:22] VITALS: BP 93/63; PULSE 70; RESP 18; TEMP 36.6; O2SAT 95
[2023-09-07] MEDS: acetaminophen 325 mg Tablet 650 MG PO ×3 (02:42→18:31)
[2023-09-07] MEDS: hyDROXYzine 25 mg Capsule 50 MG PO ×4 (02:42→20:19)
--- NOTE | 2023-09-07 06:41 | PC.NURSE ---
pt ref vs resp 18
--- NOTE | 2023-09-07 07:38 | P.NPUPN_ITS ---
Subjective NPU 2 Subjective: Patient presented today reporting that he is doing okay. He was in his room minus the wrap on his head. He denied any new symptoms but reported it is early this morning and have not really gotten going. He denied any side effects or problems from the medication. We discussed that being the weekend and that there were no plans for discharge and that anything surrounding discharge would be considered again on Saturday. He denied any current thoughts of lethality and was not overheard voicing any. Mental Status Exam 2 MSE Comments: This is an obese white male in hospital scrubs with limited grooming and eye contact. No abnormal movements except for psychomotor retardation. Wearing a towel on his head. Cooperative with exam in mild distress. Speech was limited and decreased rate and volume. Mood described as okay, affect congruent, but subdued. Thought process linear. Thought content: Patient denied current suicidal or homicidal ideation, there were no delusions reported or noted, he denied any auditory or visual hallucinations currently. Attention and concentration were limited and memory appeared mostly reliable but none were formally tested. He is alert and oriented x 3. Insight, judgment and impulse control are limited but improving. Vitals/I&O/Wt Last Vital Signs Temp 97.9 F 09/06/23 20:22 Pulse 70 09/06/23 20:22 Resp 18 09/06/23 20:22 BP 93/63 09/06/23 20:22 Pulse Ox 95 09/06/23 20:22 O2 Del Method Room Air 09/06/23 20:22 Data NPU 08/28/23 18:15 08/25/23 05:31 A&P Assessment and plan (1) Schizophrenia: (2) Suicidal ideation: (3) Generalized anxiety disorder: Plan Patient is a 57-year-old male with schizophrenia admitted with active paranoia in the context of noncompliance with his psychiatric medications for over 2 years. The patient was agreeable to a trial of a medication to target psychosis. 1. ?Encourage individual, group and milieu therapy. 2. Recommend sober living treatment at the highest level of care to which the patient is willing to commit. 3. Continue q-15 minute checks for safety. Continue Latuda 60mg at 7Pm with food. Risks and benefits discussed with patient. Increased klonopin to .5mg bid to target anxiety. Involuntary Hold Information 2 96 Hour Hold: 96 Hour Involuntary Admission: No Attestations NPU 2 Medical Necessity Statement*: Inpatient hospitalization is medically necessary and deemed to be the clinically appropriate intervention at this time.? Medications will be initiated and adjusted as clinically indicated.? The patient?s likely length of stay is 3-5 days.? Coding Level of Care Code Acute Code for Chg Fwd Diagnoses Schizophrenia F20.9 Suicidal ideation R45.851 Generalized anxiety disorder F41.1
[2023-09-07] MEDS: ibuprofen 600 mg Tablet PO ×3 (08:30→20:19)
[2023-09-07] MEDS: CLONazepam 0.5 mg Tablet PO ×2 (08:31→20:19)
--- NOTE | 2023-09-07 08:33 | PC.NURSE ---
pt came to of nurses station requesting anxiety medication, ibuprofen and morning medications. pt asked if Doctor had said anything about discharging him, when asked if he was wanting to be discharge pt stated he wanted to stay here. when asked if he wanted to harm himself or others pt stated yes himself but only if he is discharged, when asked further about harming him self pt stated that he would kill himself if he was discharged. pt did state that while he is here he did not feel that way on harming himself.
--- NOTE | 2023-09-07 13:24 | PC.NURSE ---
pt refusing to eat or drink at this time.when asked if he was going on a hunger strike pt asked if that was a serious question when I said yes pt stated I am just not going to eat or drink.
[2023-09-07 14:00] VITALS: BP 109/78; PULSE 87; RESP 17; TEMP 36.8; O2SAT 94
[2023-09-07] MEDS: OLANZapine 5 mg ODT PO (14:47)
[2023-09-07] MEDS: lurasidone 20 mg Tablet 60 MG PO (18:31)
[2023-09-07] MEDS: trazodone 50 mg Tablet PO (20:19)
[2023-09-07 20:36] VITALS: BP 131/82; PULSE 67; RESP 15; TEMP 36.5; O2SAT 97
[2023-09-08 06:00] VITALS: BP 113/66; PULSE 70; RESP 16; O2SAT 94
--- NOTE | 2023-09-08 07:51 | P.NPUPN_ITS ---
Subjective NPU 2 Subjective: Patient presented today reporting that he is doing okay. He continues to be fairly isolative and staying in his room and sleeping a lot. We discussed trying to get him out of bed and more engaged in what is going on. He denies any side effects of the medication though was lobbying for greater anxiety medication and we discussed the importance of him being more active to identify and observe said anxiety. Mental Status Exam 2 MSE Comments: This is an obese white male in hospital scrubs with limited grooming and eye contact. No abnormal movements except for psychomotor retardation. Wearing a towel on his head. Cooperative with exam in mild distress. Speech was limited and decreased rate and volume. Mood described as okay, affect congruent, but subdued. Thought process linear. Thought content: Patient denied current suicidal or homicidal ideation, there were no delusions reported or noted, he denied any auditory or visual hallucinations currently. Attention and concentration were limited and memory appeared mostly reliable but none were formally tested. He is alert and oriented x 3. Insight, judgment and impulse control are limited but improving. Vitals/I&O/Wt Last Vital Signs Temp 97.7 F 09/07/23 20:36 Pulse 70 09/08/23 06:00 Resp 16 09/08/23 06:00 BP 113/66 09/08/23 06:00 Pulse Ox 94 09/08/23 06:00 O2 Del Method Room Air 09/08/23 06:00 09/07/23 09/08/23 09/08/23 22:59 06:59 14:59 Intake Total 900 / 900 Balance 900 / 900 Weight last 48 hrs Weight 112.037 kg Data NPU 08/28/23 18:15 08/25/23 05:31 A&P Assessment and plan (1) Schizophrenia: (2) Suicidal ideation: (3) Generalized anxiety disorder: Plan Patient is a 57-year-old male with schizophrenia admitted with active paranoia in the context of noncompliance with his psychiatric medications for over 2 years. The patient was agreeable to a trial of a medication to target psychosis. 1. ?Encourage individual, group and milieu therapy. 2. Recommend sober living treatment at the highest level of care to which the patient is willing to commit. 3. Continue q-15 minute checks for safety. Continue Latuda 60mg at 7Pm with food. Risks and benefits discussed with patient. Increased klonopin to .5mg bid to target anxiety. Involuntary Hold Information 2 96 Hour Hold: 96 Hour Involuntary Admission: No Attestations NPU 2 Medical Necessity Statement*: Inpatient hospitalization is medically necessary and deemed to be the clinically appropriate intervention at this time.? Medications will be initiated and adjusted as clinically indicated.? The patient?s likely length of stay is 3-5 days.? Coding Level of Care Code Acute Code for [facility] Fwd Diagnoses Schizophrenia F20.9 Suicidal ideation R45.851 Generalized anxiety disorder F41.1
[2023-09-08] MEDS: acetaminophen 325 mg Tablet 650 MG PO ×2 (09:09→18:45)
[2023-09-08] MEDS: CLONazepam 0.5 mg Tablet PO ×2 (09:09→20:25)
[2023-09-08] MEDS: hyDROXYzine 25 mg Capsule 50 MG PO ×2 (09:10→18:45)
[2023-09-08] MEDS: OLANZapine 5 mg ODT PO (13:46)
[2023-09-08] MEDS: ibuprofen 600 mg Tablet PO (13:46)
[2023-09-08 13:55] VITALS: BP 138/86; PULSE 99; RESP 18; TEMP 36.5; O2SAT 95
[2023-09-08] MEDS: lurasidone 20 mg Tablet 60 MG PO (18:42)
[2023-09-08 20:13] VITALS: BP 134/81; PULSE 70; RESP 18; O2SAT 98
[2023-09-08] MEDS: trazodone 50 mg Tablet PO (20:25)
[2023-09-09] MEDS: OLANZapine 5 mg ODT PO (01:20)
[2023-09-09] MEDS: acetaminophen 325 mg Tablet 650 MG PO ×2 (01:20→20:20)
[2023-09-09 06:00] VITALS: BP 157/82; PULSE 120; RESP 18; O2SAT 94
[2023-09-09] MEDS: ibuprofen 600 mg Tablet PO ×2 (06:01→14:42)
[2023-09-09] MEDS: CLONazepam 0.5 mg Tablet PO ×2 (09:19→20:20)
--- NOTE | 2023-09-09 11:20 | P.NPUPN_ITS ---
Subjective NPU 2 Subjective: Patient presented today reporting that he is doing fine but feels that he is under the weather. We discussed that he had 1 temperature reading that was elevated but not febrile. We discussed the importance of getting up and being engaged to not feeling so tired. We discussed that sometimes people feel tired because they are laying around and not necessarily laying around because the tired. Otherwise he denied any side effects of the medication that he did not like the medication was making him feel tired. We talked about possibly needing to back down on the Klonopin if he continues to seem lethargic. Mental Status Exam 2 MSE Comments: This is an obese white male in hospital scrubs with limited grooming and eye contact. No abnormal movements except for psychomotor retardation. Wearing a towel on his head. Cooperative with exam in mild distress. Speech was limited and decreased rate and volume. Mood described as I think I am sick, affect congruent, but subdued. Thought process linear. Thought content: Patient denied current suicidal or homicidal ideation, there were no delusions reported or noted, he denied any auditory or visual hallucinations currently. Attention and concentration were limited and memory appeared mostly reliable but none were formally tested. He is alert and oriented x 3. Insight, judgment and impulse control are limited but improving. Vitals/I&O/Wt Last Vital Signs Temp 97.7 F 09/08/23 13:55 Pulse 120 H 09/09/23 06:00 Resp 18 09/09/23 06:00 BP 157/82 09/09/23 06:00 Pulse Ox 94 09/09/23 06:00 O2 Del Method Room Air 09/08/23 06:00 Weight last 48 hrs Weight 112.037 kg Data NPU 08/28/23 18:15 08/25/23 05:31 A&P Assessment and plan (1) Schizophrenia: (2) Suicidal ideation: (3) Generalized anxiety disorder: Plan Patient is a 57-year-old male with schizophrenia admitted with active paranoia in the context of noncompliance with his psychiatric medications for over 2 years. The patient was agreeable to a trial of a medication to target psychosis. 1. ?Encourage individual, group and milieu therapy. 2. Recommend sober living treatment at the highest level of care to which the patient is willing to commit. 3. Continue q-15 minute checks for safety. Continue Latuda 60mg at 7Pm with food. Risks and benefits discussed with patient. Increased klonopin to .5mg bid to target anxiety. May need to decrease Klonopin to decrease somnolence. Involuntary Hold Information 2 96 Hour Hold: 96 Hour Involuntary Admission: No Attestations NPU 2 Medical Necessity Statement*: Inpatient hospitalization is medically necessary and deemed to be the clinically appropriate intervention at this time.? Medications will be initiated and adjusted as clinically indicated.? The patient?s likely length of stay is 3-5 days.? Coding Level of Care Code Acute Code for Chg Fwd Diagnoses Schizophrenia F20.9 Suicidal ideation R45.851 Generalized anxiety disorder F41.1
[2023-09-09 14:00] VITALS: BP 135/98; PULSE 118; RESP 17; TEMP 37.9; O2SAT 94
[2023-09-09] MEDS: ondansetron 4 MG Tablet PO (14:42)
[2023-09-09] MEDS: hyDROXYzine 25 mg Capsule 50 MG PO (14:42)
[2023-09-09] MEDS: lurasidone 20 mg Tablet 60 MG PO (18:25)
[2023-09-09 20:20] VITALS: BP 154/97; PULSE 82; RESP 16; TEMP 37.1; O2SAT 96
[2023-09-09] MEDS: trazodone 50 mg Tablet PO (20:20)
[2023-09-10] MEDS: ibuprofen 600 mg Tablet PO ×2 (01:25→14:23)
[2023-09-10] MEDS: hyDROXYzine 25 mg Capsule 50 MG PO ×3 (01:25→20:43)
[2023-09-10 06:00] VITALS: RESP 16
--- NOTE | 2023-09-10 10:27 | PC.NURSE ---
attempted to administer pt morning dose of Klonopin 0.5mg multiple times. each time pt refused medication due to not feeling well. pt current needs are met at this time.
--- NOTE | 2023-09-10 12:05 | PC.NURSE ---
PT INFORMED MULTIPLE TIMES THAT LUNCH WAS HERE. PT STATED IM NOT EATING I DON'T FEEL WELL. THIS NURSE INFORMED PT THAT THE PHYSICIAN BELIEVES HE WILL FEEL BETTER IF HE GETS UP AND PARTICIPATES. PT IS RESISTANT TO LEARNING AND STATED THANK YOU FOR RELAYING THE INFORMATION AND PROMPTLY CLOSED HIS EYES AGAIN.
[2023-09-10 14:00] VITALS: BP 146/78; PULSE 86; RESP 18; TEMP 37.1; O2SAT 98
--- NOTE | 2023-09-10 17:30 | P.NPUPN_ITS ---
Subjective NPU 2 Subjective: Patient presented today reporting that he has not had any more elevated temperatures. We discussed that we had no concerns that he has the flu. We discussed concerns that he is not engaging in hopes to stay longer. We discussed a plan for discharge in the next 48 hours. He denied any issues with his medication. Mental Status Exam 2 MSE Comments: This is an obese white male in hospital scrubs with limited grooming and eye contact. No abnormal movements except for psychomotor retardation. Wearing a towel on his head. Cooperative with exam in mild distress. Speech was limited and decreased rate and volume. Mood described as a little better, affect congruent, but subdued. Thought process linear. Thought content: Patient denied current suicidal or homicidal ideation, there were no delusions reported or noted, he denied any auditory or visual hallucinations currently. Attention and concentration were limited and memory appeared mostly reliable but none were formally tested. He is alert and oriented x 3. Insight, judgment and impulse control are limited but improving. Vitals/I&O/Wt Last Vital Signs Temp 98.8 F 09/09/23 20:20 Pulse 82 09/09/23 20:20 Resp 16 09/10/23 06:00 BP 154/97 09/09/23 20:20 Pulse Ox 96 09/09/23 20:20 O2 Del Method Room Air 09/09/23 20:20 Data NPU 08/28/23 18:15 08/25/23 05:31 A&P Assessment and plan (1) Schizophrenia: (2) Suicidal ideation: (3) Generalized anxiety disorder: Plan Patient is a 57-year-old male with schizophrenia admitted with active paranoia in the context of noncompliance with his psychiatric medications for over 2 years. The patient was agreeable to a trial of a medication to target psychosis. 1. ?Encourage individual, group and milieu therapy. 2. Recommend sober living treatment at the highest level of care to which the patient is willing to commit. 3. Continue q-15 minute checks for safety. Continue Latuda 60mg at 7Pm with food. Risks and benefits discussed with patient. Increased klonopin to .5mg bid to target anxiety. Decreased Klonopin to 0.25 mg p.o. twice daily. Involuntary Hold Information 2 96 Hour Hold: 96 Hour Involuntary Admission: No Attestations NPU 2 Medical Necessity Statement*: Inpatient hospitalization is medically necessary and deemed to be the clinically appropriate intervention at this time.? Medications will be initiated and adjusted as clinically indicated.? The patient?s likely length of stay is 2-4 days.? Coding Level of Care Code Acute Code for Chg Fwd Diagnoses Schizophrenia F20.9 Suicidal ideation R45.851 Generalized anxiety disorder F41.1
[2023-09-10] MEDS: lurasidone 20 mg Tablet 60 MG PO (18:41)
[2023-09-10 20:33] VITALS: BP 138/89; PULSE 77; RESP 16; TEMP 36.8; O2SAT 97
[2023-09-10] MEDS: trazodone 50 mg Tablet PO (20:43)
[2023-09-10] MEDS: CLONazepam 0.5 mg Tablet 0.25 MG PO (20:43)
[2023-09-10] MEDS: acetaminophen 325 mg Tablet 650 MG PO (20:44)
[2023-09-11 06:00] VITALS: BP 125/85; PULSE 94; RESP 15; O2SAT 93
[2023-09-11] MEDS: ibuprofen 600 mg Tablet PO (10:34)
[2023-09-11] MEDS: CLONazepam 0.5 mg Tablet 0.25 MG PO (10:35)
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
--- NOTE | 2023-09-11 12:35 | DCPLANNER ---
Imm was printed and given to patient and copy placed in file.
[2023-09-11 12:52] VITALS: BP 125/85; PULSE 94; RESP 15; O2SAT 93
== END 2023-09-11 13:42 | disposition home or self-care (01) | DRG 885 ==
LOC: ER 06:25 → NP 06:43
PROVIDERS: Emergency Medicine; Admitting Provider Psychiatry & Neurology Psychiatry; Emergency Provider Family Medicine; PCP Family Medicine; Visit Provider Psychiatry & Neurology Psychiatry
DX: F20.9 Schizophrenia, unspecified (principal); R45.851 Suicidal ideations; F33.2 Major depressive disorder, recurrent severe without psychotic features; F41.1 Generalized anxiety disorder; Z87.891 Personal history of nicotine dependence; F12.10 Cannabis abuse, uncomplicated; Z91.148 Patient's other noncompliance with medication regimen for other reason; N50.819 Testicular pain, unspecified; Z62.811 Personal history of psychological abuse in childhood; Z62.810 Personal history of physical and sexual abuse in childhood
CPT/HCPCS: 36415; 80053; 80306; 80307; 81001; 81003; 85007; 85025; 85027; 90471; 90686; 97150; 97165; 99285; Q0162

== ENCOUNTER → 2024-02-28 13:51 | Outpatient (BNVA) | payer MEDICARE, MEDICAID, OTHER, SELFPAY | PROVIDERS: PCP Family Medicine; Visit Provider Nurse Practitioner Psychiatric/Mental Health | DX: Z79.899 Other long term (current) drug therapy (principal) | CPT/HCPCS: 80053; 80061; 83036 ==

== ENCOUNTER 2025-03-22 14:48 | Emergency (ER) | payer MEDICARE, MEDICAID, SELFPAY ==
--- NOTE | 2025-03-22 14:52 | ECG_ITS ---
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 Measurements Intervals [place] Rate: 79 P: -4 NH: 144 QRS: 4 QRSD: 98 T: 60 QT: 394 QTc: 452 Interpretive Statements SINUS RHYTHM SEPTAL MYOCARDIAL INFARCTION , OF INDETERMINATE AGE [40+ ms Q WAVE IN V1/V2] No previous ECG available for comparison Electronically Signed On 03-22-2025 21:54:25 CDT by Prema Daniels M.D. [email or web address]
--- NOTE | 2025-03-22 14:54 | ED_ITS ---
HPI - Syncope 2 General: Chief Complaint: Syncope Stated Complaint: syncopal episode Time Seen by Provider: 03/22/25 14:51 Source: patient and EMS Mode of arrival: EMS Limitations: no limitations History of Present Illness: 59-year-old male is an outside clinic he is having his blood drawn states afterwards he started to feel diaphoretic lightheaded and did have a syncopal event. He states he had some nausea denies any headache denies any chest pain he did not hit his head he states he is feeling back to normal currently states he still feels a little nauseous. Associated symptoms: Deny abdominal pain, chest pain, fever(s), headache(s) or nausea Related Data Previous Rx's ?Medication ?Instructions ?Recorded escitalopram oxalate 20 mg tablet 20 mg PO DAILY #90 t abs 03/22/25 hydroxyzine pamoate 25 mg capsule See Rx Instructions PO DAILY PRN 03/22/25 Anxiety #60 caps lurasidone 60 mg tablet 60 mg PO DAILY #90 tabs 03/07 03/31 trazodone 100 mg tablet 100 mg PO DAILY PRN insomnia #30 03/22/25 tabs Allergies Allergy/AdvReac Type Severity Reaction Status Date / Time No Known Allergies Allergy Verified 03/22/25 13:15 Review of Systems 2 Const: Denies: fever(s), chills, body aches or change in appetite ENMT: Denies: throat pain or dental pain Card: Reports: syncope; Denies: chest pain Resp: Denies: dyspnea GI: Denies: abdominal pain, nausea, vomiting or diarrhea : Denies: dysuria Musc: Denies: neck pain or back pain Skin/Breast: Denies: rash Neuro: Denies: headache(s) PFSH ED 2 PFSH: Medical History Psychiatric care Generalized anxiety disorder Major depressive disorder, recurrent severe without psychotic features Schizophrenia Social History Smoking and tobacco/nicotine status: former use of tobacco/nicotine Quit status (tobacco/nicotine): has quit using Year quit tobacco: 2005 Second hand smoke exposure: No Physical Exam 2 Const: COMMON NORMALS: no acute distress, patient oriented x3 and healthy appearing HENMT: COMMON NORMALS: normocephalic and atraumatic HEAD & SCALP: n ormocephalic and atraumatic Eye: COMMON NORMALS: conjunctivae normal CONJUNCTIVA: Yes conjunctivae normal Neck/C-Spine: COMMON NORMALS: full ROM and supple Chest: COMMONS NORMALS: normal inspection of the chest and normal palpation of entire chest wall Resp: COMMON NORMALS: normal respiratory effort, No retractions, No use of accessory muscles and clear to auscultation bilaterally AUSCULTATION: clear to auscultation bilaterally Cardio: COMMON NORMALS: regular rate, regular rhythm and No murmurs present (Cardio) RATE: regular rate RHYTHM: regular rhythm GI: COMMON NORMALS: Normal to inspection, nondistended, normoactive bowel sounds present, Soft to palpation, non-tender and no masses PALPATION: Yes Soft to palpation Extremity: COMMON NORMALS: normal to inspection and full ROM Neuro: COMMON NORMALS: patient oriented x3, moves all extremities and no focal motor deficits Psych: COMMON NORMALS: mental status grossly normal, Normal thought process present and cooperative THOUGHT PROCESS: Normal thought process present Skin: COMMON NORMALS: no rashes or lesions noted and no wounds GENERAL SKIN EXAM: no rashes or lesions noted Course 2 Vital Signs: Vital signs: Vital Signs Temperature 97.5 F L 03/22/25 14:56 Pulse Rate 67 03/22/25 14:56 Respiratory Rate 18 03/22/25 14:56 Blood Pressure 165/98 03/22/25 14:56 Pulse Oximetry 98 03/22/25 14:56 Oxygen Delivery Me thod Room Air 03/22/25 14:56 MDM - Syncope Medical Decision Making Patient presents for a syncopal event is likely a vasovagal event. Blood work here is normal EKG is normal he feels improved he stable for discharge follow-up PCP return if worsening. Medical Records I reviewed the patient's medical records. Lab Data I reviewed the patient's lab results. 03/22/25 16:11 03/22/25 16:11 Laboratory Results WBC 10.46 10^3/uL (3.29-11.43) 03/22/25 16:11 RBC 4.32 10^6/uL (3.85-5.65) 03/22/25 16:11 Hgb 13.30 g/dL (11.27-16.99) 03/22/25 16:11 Hct 40.1 % (37-53) 03/22/25 16:11 MCV 92.8 fl (82-101) 03/22/25 16:11 MCH 30.8 pg (27-33) 03/22/25 16:11 MCHC 33.2 g/dL (30-55) 03/22/25 16:11 RDW 13.5 % (12.1-15.1) 03/22/25 16:11 Plt Count 308 10^3/cmm (157-399) 03/22/25 16:11 MPV 9.9 fL (7.4-10.4) 03/22/25 16:11 Neut % (Auto) 78.4 % 03/22/25 16:11 Lymph % (Auto) 13.9 % 03/22/25 16:11 [place] % (Auto) 5.4 % 03/22/25 16:11 Eos % (Auto) 1.6 % 03/22/25 16:11 Baso % (Auto) 0.3 % 03/22/25 16:11 Neut # (Auto) 8.20 10^3/uL (1.8-7.7) H 03/22/25 16:11 Lymph # (Auto) 1.5 10^3/uL (0.8-4.8) 03/22/25 16:11 [place] # (Auto) 0.6 10^3/uL (0.2-0.9) 03/22/25 16:11 Eos # (Auto) 0.2 10^3/uL (0.0-0.8) 03/22/25 16:11 Baso # (Auto) 0.0 10^3/uL (0.0-0.1) 03/22/25 16:11 Nucleated RBC % (auto) 0 % 03/22/25 16:11 Nucleated RBCs # 0.0 /100WBC 03/22/25 16:11 Potassium 4.3 mmol/L (3.5-5.1) 03/22/25 16:11 Chloride 100 mmol/L (98-107) 03/22/25 16:11 Carbon Dioxide 26 mmol/L (22-29) 03/22/25 16:11 Anion Gap 13.3 (5-19) 03/22/25 16:11 BUN 7 mg/dL (6-20) 03/22/25 16:11 Creatinine 0.9 mg/dL (0.7-1.2) 03/22/25 16:11 Calcium 8.8 mg/dL (8.5-10.5) 03/22/25 16:11 Total Bilirubin 0.2 mg/dL (0.15-1.2) 03/22/25 16:11 AST 19 U/L (0-40) 03/22/25 16:11 ALT 17 U/L (0-41) 03/22/25 16:11 Alkaline Phosphatase 60 U/L (40-130) 03/22/25 16:11 Albumin 4.1 g/dL (3.5-5.2) 03/22/25 16:11 Globulin 2.4 g/dL (1.3-4.6) 03/22/25 16:11 No radiology studies performed this visit EKG Data EKG 1: I personally reviewed and interpreted this EKG as follows: EKG interpretation date: 03/22/25 EKG interpretation time: 14:52 Interpretation: nsr hr [address] elevation qrs 428 Discharge Plan Discharge Patient Disposition: Home Clinical Impression: Syncope Condition: Stable Prescriptions: No Action escitalopram oxalate 20 mg tablet 20 mg PO DAILY Qty: 90 1RF Rx Instructions: Take one tablet daily lurasidone 60 mg tablet 60 mg PO DAILY Qty: 90 1RF Rx Instructions: Take one tablet daily with at least 350 calories snack/light meal trazodone 100 mg tablet 100 mg PO DAILY PRN (Reason: insomnia) Qty: 30 2RF Rx Instructions: Take one tablet daily at bedtime, if needed for insomnia hydroxyzine pamoate 25 mg capsule See Rx Instructions PO DAILY PRN (Reason: Anxiety) Qty: 60 2RF Rx Instructions: Take one or two capsules daily, if needed for anxiety Discharge Orders: Discharge ED (Routine); Ordered 03/22/25 Ordered By: Mary Ortiz Referrals: Wadr Estevez MD [Primary Care Provider, Family Practice] Discharge Diet: Advance as tolerated Discharge Activity: Resume usual activity Patient Instructions: Syncope (ED) Print Language: Latvian Coding Level of Care Code ED 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
[2025-03-22 14:56] VITALS: BP 165/98; PULSE 67; RESP 18; TEMP 36.4; O2SAT 98
[2025-03-22] MEDS: sodium chloride 0.9% 1,000 ML 999 ML IV (15:21)
[2025-03-22] MEDS: ondansetron 2 mg/ML SDV 2 mL 4 MG IVP (15:21)
[2025-03-22 16:28] LABS: Basophils % 0.3 %; Eosinophils # 0.2 10^3/uL (0.0-0.8); Eosinophils % 1.6 %; Hematocrit 40.1 % (37-53); Lymphocytes # 1.5 10^3/uL (0.8-4.8); Lymphocytes % 13.9 %; Mean Corpuscular HGB Conc 33.2 g/dL (30-55); Mean Corpuscular Hemoglobin 30.8 pg (27-33); Mean Corpuscular Volume 92.8 fl (82-101); Mean Platelet Volume 9.9 fL (7.4-10.4); Monocytes # 0.6 10^3/uL (0.2-0.9); Monocytes % 5.4 %; Neutrophils % 78.4 %; Nucleated Red Blood Cells % 0 %; Platelet Count 308 10^3/cmm (157-399); Red Blood Count 4.32 10^6/uL (3.85-5.65); Red Cell Distribution Width 13.5 % (12.1-15.1); White Blood Count 10.46 10^3/uL (3.29-11.43)
[2025-03-22 16:46] LABS: Alanine Aminotransferase 17 U/L (0-41); Albumin Level 4.1 g/dL (3.5-5.2); Alkaline Phosphatase 60 U/L (40-130); Anion Gap 13.3 (5-19); Aspartate Amino Transferase 19 U/L (0-40); Blood Urea Nitrogen 7 mg/dL (6-20); Calcium 8.8 mg/dL (8.5-10.5); Carbon Dioxide 26 mmol/L (22-29); Chloride 100 mmol/L (98-107); Creatinine Clr Calc Pharmacy 122.3348; Globulin 2.4 g/dL (1.3-4.6); Glucose 132 mg/dL (65-115); Osmolality Calculated 280 mOsm/kg (285-295); Potassium 4.3 mmol/L (3.5-5.1); Sodium 135 mmol/L (136-145); Total Bilirubin 0.2 mg/dL (0.15-1.2); Total Protein 6.5 g/dL (6.6-8.7)
== END 2025-03-22 16:51 | disposition home or self-care (01) ==
PROVIDERS: Emergency Provider Emergency Medicine; PCP Family Medicine
DX: R55 Syncope and collapse (principal); Z87.891 Personal history of nicotine dependence
CPT/HCPCS: 80053; 80061; 83036; 85025; 93005; 96374; 99284; J2405; J7030